=== PATIENT | male | born 1980 | race Two or more races ===

== ENCOUNTER 2022-03-25 07:53 | Emergency (ER) | payer SELFPAY ==
[2022-03-25 08:04] VITALS: BP 138/93; PULSE 100; RESP 19; TEMP 36.9; O2SAT 98; BMI 27.1
[2022-03-25 08:26] LABS: Strep A Nucleic Acid Negative (Negative)
[2022-03-25 08:40] LABS: COVID-19 Test Negative (Negative)
--- NOTE | 2022-03-25 10:05 | ED.URI ---
HPI - URI/Sore Throat General Chief Complaint: Upper Respiratory Symptoms Stated Complaint: Sore throat/Trouble swallowing Time Seen by Provider: 03/25/22 09:21 Source: patient and family ( at bedside) Mode of arrival: ambulatory Limitations: no limitations History of Present Illness HPI Narrative: 41-year-old male presenting to the ED with at bedside with complaints of subjective fevers, chills, fatigue, malaise with a sore throat and a productive cough with green-colored sputum for the 3 days. Patient reports he has been using [id number] medication which has minutes providing some symptomatic relief and improving his symptoms. Patient does report 1-2 episodes of nausea/vomiting. They have a 6-year-old although no one else in the household has similar symptoms. Patient denies any measured fevers, ear pain, dizziness, headaches, neck pain/stiffness, trouble swallowing or breathing, trismus or drooling, chest pain or shortness of breath, black or bloody emesis, black or bloody sputum, dyspnea on exertion, orthopnea, palpitations, diarrhea, constipation, recent travel or sick contacts that he is aware of or any other symptoms complaints or concerns at this time. MD elicited complaint: fever, cough and sore throat Onset (ago): day(s) (3) Consistency: constant and improved Severity: mild Description of mucous: yellow and green Able to tolerate fluids by mouth: Yes Exacerbating factors: swallowing Relieving factors: nothing Associated symptoms: fever, chills, myalgias, sore throat, cough, nausea and vomiting Treatments prior to arrival: other ([id number] medication) Related Data Previous Rx's Medication Instructions Recorded amoxicillin 875 mg-potassium 1 tab PO BID 7 days #14 tabs 03/25/22 clavulanate 125 mg tablet Allergies Allergy/AdvReac Type Severity Reaction Status Date / Time No Known Allergies Allergy Verified 03/25/22 09:16 Review of Systems Review of Systems: Constitutional : + subjective fevers/chills/fatigue/malaise, No Weight loss,No Night Sweats ENT/Mouth : + sore throat, No Hearing loss, No Ear Pain, No Nasal Congestion, No Sinus Pain, No Hoarseness, No Rhinorrhea, No Swallowing Difficulty Eyes: No Eye Pain, No Swelling, No Redness, No Foreign Body, No Discharge, No Vision Changes Cardiovascular : No Chest Pain, No SOB, No Dyspnea on Exertion, No Orthopnea, No Edema, No Palpitations Respiratory : + cough with sputum production, No Wheezing, No Smoke Exposure, No Dyspnea Gastrointestinal : No Nausea, No Vomiting, No Diarrhea, No Constipation, No abdominal Pain, No Hematochezia, No Melena Genitourinary : no irregular bleeding, No Dysuria, No Urinary Frequency, No Hematuria, No Urinary Incontinence, No Urgency, No Flank Pain, No Urinary Flow Changes, No Hesitancy Musculoskeletal : No joint pain, No Myalgias, No Joint Swelling Skin : No Skin Lesions, No rash Neuro : No Weakness, No Numbness, No Paresthesias, No Loss of Consciousness, No Dizziness, No Headache Psych : No Anxiety/Panic, No Depression, No SI/HI/AH/VH, No Social Issues, Heme/Lymph: No Bruising, No Bleeding,No Lymphadenopathy Endocrine : No Polyuria, No Polydipsia, No Temperature Intolerance Yes all other systems are reviewed and are negative [facility] Past Medical History Attestation statement: The following information was validated with the patient. Source: old records reviewed, obtained from family and nursing notes reviewed Social History Social History Advance Directives: No Advance Directives Information Provided: No Physical Exam Vital Signs: Vital Signs: Last Vital Signs Temp 98.4 F 03/25/22 08:04 Pulse 100 03/25/22 08:04 Resp 19 03/25/22 08:04 BP 138/93 H 03/25/22 08:04 Pulse Ox 98 03/25/22 08:04 O2 Del Method 03/25/22 08:04 BMI result Body Mass Index 27.1 vital signs have been reviewed as normal and appeared to be correct. Blood pressure 138/93. Heart rate normal. Respiration rate normal. Temperature normal. Oxygen saturation normal. Appearance: Alert. Oriented X3. No acute distress. Head: Normal external exam. Normocephalic. Atraumatic. Eyes: PERRLA. EOMI. Conjunctiva and sclera normal. Eyelids normal. ENT: EAC normal. TM's Normal. Posterior pharynx/tonsils mildly erythematous. Although no exudate is noted. Soft and hard palate within normal limits. Uvula midline. Moist mucous membranes. No lesions/ulcerations or masses noted on the tongue. Normal voice. No trismus noted. No drooling noted. No muffled voice noted. Neck: Normal inspection. Neck supple. FROM. No adenopathy. Thyroid Normal. No tracheal deviation noted. No crepitus is noted. No meningeal signs. No neck mass noted. No signs of trauma noted. CVS: Normal heart rate and rhythm. Heart sound normal. Pulses normal throughout. No murmurs/rales/gallops. Respiratory: No respiratory distress. Painless inspiration. Breath sounds normal. No wheezes/rales/rhonchi noted. Chest nontender. No crepitus is noted. No accessory muscle usage noted or decreased air movement noted. No signs of trauma. Back: Full range of motion noted. Skin: Skin warm and dry. Normal skin color. Normal skin turgor. No rashes/lesions/lacerations noted. Extremities: Extremities exhibit normal range of motion and nontender. Neuro: Oriented X 3. No motor deficit. No sensory deficit. Reflexes normal. Normal steady gait. No focal neuro deficits noted. CN's II-XII intact bilaterally? Vascular: + radial pulses/+ 2 distal pedal pulses/+2 dorsalis pedis b/l. Normal cap refill. No cyanosis noted to upper extremity nails and lower extremity toes nails. Course Course Course Narrative: 41-year-old male presenting to the ED with at bedside with complaints of subjective fevers, chills, fatigue, malaise with a sore throat and a productive cough with green-colored sputum for the 3 days. Patient reports he has been using [id number] medication which has minutes providing some symptomatic relief and improving his symptoms. Patient does report 1-2 episodes of nausea/vomiting. Patient negative for COVID and strep. Not consistent with peritonsillar/pharyngeal/dental abscess. Not consistent with Narinder's angina. No trismus/drooling/stridor. Patient tolerating secretions well. Lungs clear to auscultation. Neck is supple, soft nontender with full range of motion no meningeal sign noted. Therefore explained to the patient that we could run a mono swab. Although will DC home with instructions to return if any new or worsening symptoms and symptomatic treatment instructions to follow-up with primary care provider. Patient with at bedside understand agree this plan. MDM - URI/Sore Throat Medical Records Attestation: I reviewed the patient's medical records. Lab Data Attestation: I reviewed the patient's lab results. Labs: Lab Results 03/25/22 03/25/22 Range/Units 08:08 08:08 COVID-19 (MADHAVI) Negative (Negative) COVID-19 Clin Com See Note S. pyogenes GrpA MAY Negative (Negative) Discharge Plan Discharge Clinical Impression: Pharyngitis, Upper respiratory infection Patient Disposition: Home, Self-Care Instructions: Pharyngitis (ED), Upper Respiratory Infection (ED) Prescriptions: New amoxicillin-pot clavulanate 875-125 mg tablet 1 tab PO BID 7 Days Qty: 14 0RF Referrals: Physician,None [Primary Care Provider] - (your pcp as needed ) Stand Alone Forms: Work/School Release Print Language: Setswana
[2022-03-25 11:21] LABS: Monotest Negative (Negative)
== END 2022-03-25 10:30 | disposition home or self-care (01) ==
PROVIDERS: Physician Assistant Medical; Emergency Provider Emergency Medicine
DX: J02.9 Acute pharyngitis, unspecified (principal); J06.9 Acute upper respiratory infection, unspecified; R13.10 Dysphagia, unspecified; R50.9 Fever, unspecified; R05.9 Cough, unspecified; M79.10 Myalgia, unspecified site; Z20.822 Contact with and (suspected) exposure to COVID-19; Z79.899 Other long term (current) drug therapy
CPT/HCPCS: 36415; 86308; 87635; 87651; 99283

== ENCOUNTER 2023-02-19 08:21 | Emergency (ER) | payer SELFPAY ==
--- NOTE | ~2023-02-19 | CT_ITS ---
EXAMINATION: CT HEAD WITHOUT CONTRAST CLINICAL INFORMATION: New onset seizure COMPARISON: None available. TECHNIQUE: Contiguous axial imaging was performed from the skull base to vertex without intravenous administration of contrast. This CT examination was performed using dose optimization techniques as appropriate, variously including the following: *Automated exposure control *Adjustment of mA and/or kV according to patient size (this includes techniques or standardized protocols for targeted exams where dose is matched to indication/reason for exam; i.e. extremities or head) *Use of iterative reconstruction technique DLP: 829 mGy-cm FINDINGS: Normal kamara-white matter differentiation. No evolving infarct, mass lesion, mass effect, midline shift, hemorrhage or extra-axial fluid collections. Anterior falcine calcification. Incidental note of cavum septum pellucidum, anatomic variant. Unremarkable orbits, sinuses and mastoids. Bony structures are intact. Soft tissues are unremarkable. CT/CT head/brain wo IV con IMPRESSION: No acute intracranial pathology.
--- NOTE | 2023-02-19 08:28 | ED.SEIZURE ---
HPI - Seizure General Chief Complaint: Seizure Stated Complaint: SZ,POST ICTAL PER EMS Time Seen by Provider: 02/19/23 08:26 Source: patient, family and EMS Mode of arrival: EMS Limitations: no limitations History of Present Illness HPI Narrative: 42 yo male with no significant medical history presents to the ER from home via EMS for possible new onset seizure. History obtained from significant other as patient has no recollection of events. She states this morning she heard a thud and went into their bedroom to find the patient rigid and shaking on the floor. He was not responding and he was foaming at the mouth. She called 911. She states the seizure activity lasted a couple of minutes. She states the was also come blood coming out of his mouth at the end as well. No urinary or bowel incontinence. When he came to he was combative and confused. EMS reports significant improvement in his mental status since they 1st arrives. He is AAO X3 and denies any physical complaints on arrival to the ER. He denies any medical history. No seizure history. Denies drug and alcohol use and so does his . He denies headache, neck pain, chest pain, abdominal pain, N/V/D. complaint: seizure Onset (ago): minute(s) Description of Episode: loss of consciousness, tonic-clonic movement and post-event confusion Witnessed: Yes - by Bystander Trauma: No Seizure History: No Place: Home Possible Precipitating Event: none Associated symptoms: denies other symptoms Treatments prior to arrival: none Related Data Previous Rx's Medication Instructions Recorded amoxicillin 875 mg-potassium 1 tab PO BID 7 days #14 tabs 03/25/22 clavulanate 125 mg tablet Allergies Allergy/AdvReac Type Severity Reaction Status Date / Time No Known Allergies Allergy Verified 02/19/23 08:33 Review of Systems Review of Systems: Yes all other systems are reviewed and are negative [facility] Social History Social History Alcohol intake: never Smoked in Last 30 Days: No Use of substances other than those prescribed or required for medical reasons: No Advance Directives: No Physical Exam Vital Signs: Vital Signs: Last Vital Signs Temp 97.9 F 02/19/23 08:42 Pulse 98 02/19/23 08:42 Resp 18 02/19/23 08:42 BP 121/82 02/19/23 08:42 Pulse Ox 95 02/19/23 08:42 O2 Del Method Room Air 02/19/23 08:42 BMI result Body Mass Index 29.6 Appearance: Alert. Oriented X3. No acute distress. Head: normocephalic, atraumatic. Eyes: Pupils equal, round and reactive to light. ENT: Pharynx normal. No tonsillar swelling or exudate. No tongue laceration. Neck: Normal inspection. Neck supple. CVS: Normal heart rate and rhythm. Pulses normal. Respiratory: No respiratory distress. Breath sounds normal. Abdomen: Soft and nontender. +BS x4 Skin: Skin warm and dry. Normal skin color. Normal skin turgor. No rashes. Extremities: No lower extremity edema. No joint swelling. Neuro/psych: Oriented X 3. No motor deficit. No sensory deficit. CN II-XII intact. Normal speech and cognition. Medical Decision Making Medical Decision Making [facility] Narrative: 42 yo male with no history presenting with witnessed seizure at home. +fell out of bed without signs of trauma on exam. +post-ictal state that has resolved on arrival to the ER. VS normal. Lab workup is unremarkable. No significant electrolyte abnormalities. CT head is normal. Utox and ETOH negative. He remained AAOx3, nonfocal during his time in the ER. He would like to go home. He feels well. We discussed results and plan, including need for neuro follow up. No indication for AED at this time given 1st time event. Return precautions discussed. stable for d/c home Differential Diagnosis Differential Diagnoses: The differential diagnosis associated with the presentation includes new onset seizure disorder, psychogenic nonepileptic seizures, etoh withdrawal seizure, head trauma, hyponatremia Admission/Observation Consideration of admission/observation: Escalation of care including admission/observation considered Lab Data [facility] Lab Attestation statement: I reviewed the patient's lab results. 02/19/23 08:40 02/19/23 08:40 Labs: Lab Results 02/19/23 Range/Units 08:40 WBC 7.0 (4.8-10.8) X10*3/uL RBC 4.84 (4.60-5.80) X10*6/uL Hgb 15.3 (14.0-18.0) g/dl Hct 45.8 (42.0-52.0) % MCV 94.6 (80.0-98.0) fL MCH 31.6 (27.0-33.0) pg MCHC 33.4 (31.0-36.0) g/dl RDW 11.9 (11.0-16.0) % Plt Count 285 (160-400) X10*3/uL MPV 9.0 L (9.4-12.4) fL Immature Gran % (Auto) 0.6 H (0.0-0.4) % Neut % (Auto) 55.3 (45-73) % Lymph % (Auto) 34.7 (20-40) % [place] % (Auto) 6.4 (2-11) % Eos % (Auto) 2.6 (0-4) % Baso % (Auto) 0.4 (0-2) % Lymph # (Auto) 2.4 (1.2-4.9) X10*3/uL [place] # (Auto) 0.5 (0.1-1.2) X10*3/uL Eos # (Auto) 0.2 (0.0-0.4) X10*3/uL Baso # (Auto) 0.0 (0.0-0.2) X10*3/uL Abs Immat Gran (auto) 0.04 H (0.00-0.03) X10*3/uL Absolute Neuts (auto) 3.9 (2.0-8.3) x10*3/uL Absolute Nucleated RBC 0.000 (0.0-0.012) X10*3/uL Nucleated RBC % (auto) 0.0 (0.0-0.2) /100WBC Sodium 138 (135-145) mmol/L Potassium 4.1 (3.3-5.1) mmol/L Chloride 105 (96-108) mmol/L Carbon Dioxide 20 L (22-29) mmol/L Anion Gap 17 (12-20) BUN 12 (9-16) mg/dL Creatinine 1.33 (0.5-1.4) mg/dL Estim Creat Clear Calc 78.2 Estimated GFR 59 Random Glucose 172 H (60-115) mg/dL Calcium 9.5 (8.4-10.2) mg/dL Magnesium 2.3 (1.6-2.6) mg/dL Total Bilirubin 0.3 (0.0-1.0) mg/dL Direct Bilirubin 0.1 (0.0-0.5) mg/dL AST 20 (5-37) U/L ALT 22 (0-40) U/L Alkaline Phosphatase 91 (39-117) U/L Total Creatine Kinase 156 (38-174) U/L Total Protein 7.3 (6.5-8.0) g/dL Albumin 4.4 (3.5-5.0) g/dL Ethyl Alcohol < 10 mg/dL Independent Interpretation I performed an independent interpretation of an: CT Scan Interpretation: CT head without edema or bleed Radiology Impression Discussion of test interpretation with radiology: I have reviewed the radiologist's reading. Radiologist Impression: EXAMINATION: CT HEAD WITHOUT CONTRAST CLINICAL INFORMATION: New onset seizure COMPARISON: None available. TECHNIQUE: Contiguous axial imaging was performed from the skull base to vertex without intravenous administration of contrast. This CT examination was performed using dose optimization techniques as appropriate, variously including the following: *Automated exposure control *Adjustment of mA and/or kV according to patient size (this includes techniques or standardized protocols for targeted exams where dose is matched to indication/reason for exam; i.e. extremities or head) *Use of iterative reconstruction technique DLP: 829 mGy-cm FINDINGS: Normal kamara-white matter differentiation. No evolving infarct, mass lesion, mass effect, midline shift, hemorrhage or extra-axial fluid collections. Anterior falcine calcification. Incidental note of cavum septum pellucidum, anatomic variant. Unremarkable orbits, sinuses and mastoids. Bony structures are intact. Soft tissues are unremarkable. CT/CT head/brain wo IV con IMPRESSION: No acute intracranial pathology. Independent Historian Clinical information obtained from an independent historian. History obtained from or confirmed by: Spouse and EMS External Record Review External record reviewed: Outpatient record and Prior outpatient labs Prescription Management I considered prescription management with: Other (benzodiazapina, antiepileptic drug) Critical Care Time Critical Care Time Critical Care Time: No Discharge Plan Discharge Clinical Impression: New onset seizure Patient Disposition: Home, Self-Care Instructions: New-Onset Seizure in Adults (ED) Additional Instructions: Your CT scan and labs were normal Recommend following up with Neurology for further evaluation of new onset seizure If you develop new or worsening symptoms call 911 or come back to the ER for further evaluation. Prescriptions: No Action amoxicillin-pot clavulanate 875-125 mg tablet 1 tab PO BID 7 Days Qty: 14 0RF Referrals: [facility] [place] Group] (new onset seizure)
[2023-02-19 08:33] VITALS: BP 134/74; PULSE 120; O2SAT 98; BMI 29.6
[2023-02-19 08:42] VITALS: BP 121/82; PULSE 98; RESP 18; TEMP 36.6; O2SAT 95
[2023-02-19 08:45] LABS: MANUAL DIFF FLAG NO
--- NOTE | 2023-02-19 08:45 | PC.NURSE ---
currently a&o to self and location only. pt originally states that the year is 2004, now that the year is 2014. 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 pt biba d/t seizure like activity. pt has no hx of seizures. per girlfriend, girlfriend was in other room when she head a loud thud. girlfriend thought ptwas joking but pt was displaying tonic-clonic movement with extremities extended. pt's tongue was protruding/also bleeding. girlfriend called ems. when ems got there pt was unresponsive and then agitated/combative when he came to. per ems, pt was displaying post-ictal stare. per pt, pt does not recall event what so ever. pt states that the last thing that he remembers was going to sleep last night. pt does not display any trauma. denies headache/n/chest pain/any other sx. 20gIV placed in the right AC w/o complications. labs drawn and sent to lab. seizure pads placed for precaution. pt resting comfortably in no apparent distress. respirations even and unlabored. pt's girlfriend bedside for support. call narayanan placed within reach.
[2023-02-19 08:48] LABS: Basophils Percent Auto 0.4 % (0-2); Eosinophils Absolute Auto 0.2 X10*3/uL (0.0-0.4); Eosinophils Percent Auto 2.6 % (0-4); Hematocrit 45.8 % (42.0-52.0); Hemoglobin 15.3 g/dl (14.0-18.0); Imm Gran Abs Auto 0.04 X10*3/uL (0.00-0.03); Imm Gran Pct Auto 0.6 % (0.0-0.4); Lymphocytes Absolute Auto 2.4 X10*3/uL (1.2-4.9); Lymphocytes Percent Auto 34.7 % (20-40); Mean Corpuscular HGB Conc 33.4 g/dl (31.0-36.0); Mean Corpuscular Hemoglobin 31.6 pg (27.0-33.0); Mean Corpuscular Volume 94.6 fL (80.0-98.0); Monocytes Absolute Auto 0.5 X10*3/uL (0.1-1.2); Monocytes Percent Auto 6.4 % (2-11); Neutrophils Absolute Auto 3.9 x10*3/uL (2.0-8.3); Neutrophils Percent Auto 55.3 % (45-73); Platelet Count 285 X10*3/uL (160-400); Red Blood Count 4.84 X10*6/uL (4.60-5.80); Red Cell Distribution Width 11.9 % (11.0-16.0)
[2023-02-19 09:01] LABS: Alanine Aminotransferase 22 U/L (0-40); Albumin Level 4.4 g/dL (3.5-5.0); Alkaline Phosphatase 91 U/L (39-117); Anion Gap 17 (12-20); Aspartate Amino Transferase 20 U/L (5-37); Bilirubin Direct 0.1 mg/dL (0.0-0.5); Bilirubin Total 0.3 mg/dL (0.0-1.0); Blood Urea Nitrogen 12 mg/dL (9-16); Calcium 9.5 mg/dL (8.4-10.2); Carbon Dioxide 20 mmol/L (22-29); Chloride 105 mmol/L (96-108); Creatinine Clr Calc Pharmacy 78.2; Estimated Glomerular Filt Rate 59; Glucose Random 172 mg/dL (60-115); Magnesium 2.3 mg/dL (1.6-2.6); Potassium 4.1 mmol/L (3.3-5.1); Sodium 138 mmol/L (135-145); Total Protein 7.3 g/dL (6.5-8.0)
[2023-02-19 09:06] LABS: Ethanol < 10 mg/dL
--- NOTE | 2023-02-19 09:40 | PC.NURSE ---
pt requesting to speak w/ provider in regards to plan of care. pt states that he does not want to be here and that he feels fine. provider aware.
== END 2023-02-19 10:35 | disposition home or self-care (01) ==
PROVIDERS: Physician Assistant; Emergency Provider Emergency Medicine
DX: R56.9 Unspecified convulsions (principal)
CPT/HCPCS: 36415; 70450; 80048; 80076; 80307; 82550; 83735; 85025; 99284